=== PATIENT | female | born 1980 | race Caucasian/White ===

== ENCOUNTER 2017-06-30 10:32 | Day surgery (SDC) | payer BC ==
[2017-06-29 13:03] VITALS: BMI 28.3
[2017-06-30] MEDS ORDERED: LIDOCAINE HCL 2% (20ML MULTI-DOSE VIAL) NR ONE (12:45)
[2017-06-30] MEDS ORDERED: BUPIVACAINE HCL/PF 2.5 MG/ML - 30 ML VIAL IJ ONE (12:45)
[2017-06-30] MEDS ORDERED: MIDAZOLAM HCL 2 MG/2 ML SINGLE DOSE VIAL ONE (13:27)
[2017-06-30] MEDS ORDERED: PROPOFOL 20 ML ONE ×3 (13:27→13:56)
[2017-06-30] MEDS ORDERED: BUPIVACAINE HCL/PF 0.25% (2.5MG/ML) 10 ML VIAL IJ ONE (14:40)
[2017-06-30] MEDS ORDERED: oxyCODONE HCL 5 MG TABLET PO PRN ×2 (15:47)
[2017-06-30] MEDS ORDERED: ONDANSETRON 4 MG/2 ML VIAL IVPUSH PRN (15:47)
[2017-06-30] MEDS ORDERED: LACTATED RINGERS SOLUTION 1,000 ML IV SCH (16:00)
[2017-06-30] MEDS ORDERED: oxyCODONE HCL 5 MG TABLET ONE (16:31)
[2017-06-30 18:02] VITALS: PULSE 71
[2017-06-30 18:06] VITALS: BP 115/70; TEMP 97.8
--- NOTE | 2017-07-06 07:13 | OP ---
DATE OF OPERATION: 06/30/2017 PREOPERATIVE DIAGNOSIS: Left small finger proximal phalanx fracture. POSTOPERATIVE DIAGNOSIS: Left small finger proximal phalanx fracture. OPERATIVE PROCEDURE: Left small finger open reduction internal fixation of proximal phalanx fracture. SURGEON: Moises Tomlin MD CRACKLING PRESS OPERATOR: CHARITY Wills ANESTHESIA: General. COMPLICATIONS: None. ESTIMATED BLOOD LOSS: Minimal. INDICATION FOR PROCEDURE: The patient is a 37-year-old female with the above findings indicated for operative treatment. Risks, benefits, and alternatives were discussed with patient at length, proper informed consent was obtained. PROCEDURE: After proper identification of the patient and correct operative site, patient was brought to the operating room and placed on the operating room table, prominences well padded. General anesthesia was provided by the anesthesiologist for the procedure. Intravenous antibiotics were given. Timeout procedure was performed. Left upper extremity was prepped and draped in the usual sterile fashion. Well padded tourniquet was placed with a sterile prep. Esmarch bandage to exsanguinate the left upper extremity. Tourniquet inflated to 250 mmHg. Curvilinear incision was made over the dorsal aspect of the proximal phalanx of the left small finger. Incision was taken sharply through the skin with sharp and blunt dissection to subcutaneous tissues. Extensor tendon was divided longitudinally and elevated off the fracture. Early healing was excised as well as hematoma. Fracture was reduced and held with percutaneous clamp and then repaired using two 1.2-mm interfragmentary screws from the [employer] hand plating systems. This provided secure, stable fixation confirmed visually as well as radiographically in multiple planes. [place] of the fingers was normal. Full range of motion was achieved. Wound was irrigated with saline. Radiographs were taken to confirm proper reduction and placement and sizing of all hardware. Extensor mechanism was repaired [id number] fashion with 6-0 nylon suture. Skin was repaired with 5-0 fast absorbing plain gut as well as Dermabond. Sterile dressings and splint were placed. Patient was reversed from anesthesia and brought to recovery in stable condition. Karel Clarke, the mailing machine assistant, was integral throughout the procedure. This procedure could not have been performed without a skilled operative mailing machine assistant. Rebekah [id number]
== END 2017-06-30 17:30 | disposition home or self-care (01) ==
LOC: FASU 10:32
PROVIDERS: ATTEND Orthopaedic Surgery Hand Surgery
PROC: 0PSV04Z Reposition Left Finger Phalanx with Internal Fixation Device, Open Approach (ICD-10-PCS; principal; 2017-06-30 13:15)
DX: S62.617A Displaced fracture of proximal phalanx of left little finger, initial encounter for closed fracture (principal); X58.XXXA Exposure to other specified factors, initial encounter; Y93.9 Activity, unspecified; Y92.9 Unspecified place or not applicable
CPT/HCPCS: 73130-TC-LT; 84703; 94760